=== PATIENT | male | born 1960 | race Caucasian/White ===

== ENCOUNTER → 2017-01-09 | Outpatient (CLI) | payer OTHER ==
[~2017-01-09] MED LIST: BENTYL 10MG10 MG/CAP PO; FLEXERIL 1010 MG/TAB PO; FLEXERIL10 MG PO; LORTAB 5/500 501 TAB PO; NAPROSYN500 MG PO; NEXIUM 40MG40 MG PO; NO HOME MEDICATIONS; NORCO 325 MG-51 TAB PO; NORCO 325 MG-7.1 TAB PO; PERCOCET 325 MG1 TA2 PO; PHENERGAN 25 TA25 MG PO; PREDNISONE20 MG PO; PRIL40 PO; TUMS500 MG PO; ULTRAM 50MG TAB50 MG PO; VENTOLIN0.09 MG IH
== END ==
LOC: COL.RAD 15:32
DX: M25.562 Pain in left knee (principal); M25.561 Pain in right knee

== ENCOUNTER → 2017-01-12 | Outpatient (CLI) | payer OTHER ==
[2017-01-12 16:17] LABS: HEMATOCRIT 42.4 % (42.0-52.0); HEMOGLOBIN 14.1 g/dl (13.5-18.0); MEAN CELL VOLUME 93 fl (80.0-100.0); MEAN CORPUSCULAR HEMOGLOBIN 31 pg (27.0-31.0); MEAN CORPUSCULAR HGB CONC 33 g/dl (33.0-37.0); MEAN PLATELET VOLUME 9.8 fl (7.4-10.4); PLATELET COUNT 193 K/mm3 (130-400); RED BLOOD COUNT 4.58 M/mm3 (4.20-5.60); REDCELL DISTRIBUTION WIDTH-CV 13.9 % (11.5-14.5); WHITE BLOOD COUNT 5.8 K/mm3 (4.8-10.8)
[2017-01-12 16:27] LABS: ADJUSTED CALCIUM 8.9 mg/dL (8.4-10.2); ALBUMIN 4.5 gm/dL (3.5-5.0); BILIRUBIN,TOTAL 0.9 mg/dL (0.0-1.0); CALCIUM 9.3 mg/dL (8.4-10.2); CREATININE, serum 0.96 mg/dL (0.66-1.25); POTASSIUM 3.8 mmol/L (3.4-5.0); TOTAL PROTEIN 8.5 gm/dL (6.4-8.2)
[2017-01-12 16:56] LABS: THYROID STIMULATING HORMONE 1.97 uIU/mL (0.465-4.680)
== END ==
LOC: COL.LAB 16:02
DX: K52.9 Noninfective gastroenteritis and colitis, unspecified (principal)
CPT/HCPCS: 87522

== ENCOUNTER → 2017-06-17 | Outpatient (CLI) | payer OTHER ==
[2017-06-17 12:18] LABS: COLLECTION METHOD CLEAN CATCH
[2017-06-17 12:22] LABS: HEMATOCRIT 46.1 % (42.0-52.0); HEMOGLOBIN 15.3 g/dl (13.5-18.0); MEAN CELL VOLUME 93 fl (80.0-100.0); MEAN CORPUSCULAR HEMOGLOBIN 31 pg (27.0-31.0); MEAN CORPUSCULAR HGB CONC 33 g/dl (33.0-37.0); MEAN PLATELET VOLUME 10.2 fl (7.4-10.4); PLATELET COUNT 187 K/mm3 (130-400); RED BLOOD COUNT 4.96 M/mm3 (4.20-5.60); REDCELL DISTRIBUTION WIDTH-CV 13.4 % (11.5-14.5)
[2017-06-17 12:27] LABS: MUCOUS Present /lpf; PH 6 (5-8); SQUAMOUS EPITHELIAL None Seen /hpf; URINE APPEARANCE Clear; URINE BACTERIA None Seen /hpf; URINE BILIRUBIN Negative (NEGATIVE); URINE BLOOD Negative (NEGATIVE); URINE COLOR Amber; URINE GLUCOSE Negative (NEGATIVE); URINE KETONE Trace (NEGATIVE); URINE LEUKOCYTE ESTERASE Negative (NEGATIVE); URINE NITRATE Negative (NEGATIVE); URINE PROTEIN(semi-quant) 2+ (NEGATIVE); URINE RBC 0-2 /hpf
[2017-06-17 12:30] LABS: ALBUMIN 4.7 gm/dL (3.5-5.0); BILIRUBIN,TOTAL 0.7 mg/dL (0.0-1.0); CALCIUM 9.5 mg/dL (8.4-10.2); CREATININE, serum 1.04 mg/dL (0.66-1.25); POTASSIUM 4.4 mmol/L (3.4-5.0); TOTAL PROTEIN 8.4 gm/dL (6.4-8.2)
== END ==
LOC: COL.LAB 11:52
DX: M51.36 Other intervertebral disc degeneration, lumbar region (principal); I10 Essential (primary) hypertension; R20.2 Paresthesia of skin; Z85.038 Personal history of other malignant neoplasm of large intestine

== ENCOUNTER → 2017-07-03 | Outpatient (CLI) | payer OTHER | LOC: COL.LAB 10:59 | DX: G62.9 Polyneuropathy, unspecified (principal) ==

== ENCOUNTER → 2017-07-25 | Outpatient (CLI) | payer SELFPAY ==
[2017-07-26 00:03] LABS: HEPATITIS B SURFACE ANTIGEN Negative (())
== END ==
LOC: COL.LAB 13:30
PROVIDERS: Internal Medicine Gastroenterology
DX: B18.2 Chronic viral hepatitis C (principal); J44.1 Chronic obstructive pulmonary disease with (acute) exacerbation; Z77.090 Contact with and (suspected) exposure to asbestos

== ENCOUNTER → 2017-07-25 | Outpatient (CLI) | payer SELFPAY | LOC: COL.RAD 13:34 | DX: J44.1 Chronic obstructive pulmonary disease with (acute) exacerbation (principal); Z77.090 Contact with and (suspected) exposure to asbestos ==

== ENCOUNTER → 2018-01-07 | Outpatient (CLI) | payer SELFPAY | LOC: COL.VAS 14:26 | DX: R22.42 Localized swelling, mass and lump, left lower limb (principal); M79.662 Pain in left lower leg ==

== ENCOUNTER → 2018-02-04 | Outpatient (CLI) | payer SELFPAY | LOC: COL.LAB 12:43 | DX: B18.2 Chronic viral hepatitis C (principal) ==

== ENCOUNTER → 2018-02-25 | Outpatient (CLI) | payer SELFPAY | LOC: COL.LAB 15:42 | DX: R00.0 Tachycardia, unspecified (principal) ==

== ENCOUNTER → 2018-04-01 | Outpatient (CLI) | payer SELFPAY ==
[2018-04-01 16:32] LABS: BASO % 0.6 % (0.0-2.0); EOS # 0.4 (0.0-0.7); GRAN # 2.1 (1.4-6.5); GRAN % 43.2 % (42.2-75.2); HEMOGLOBIN 13.3 g/dl (13.5-18.0); LYMPH % 40.4 % (20.0-51.0); MEAN CELL VOLUME 95 fl (80.0-100.0); MEAN CORPUSCULAR HEMOGLOBIN 31 pg (27.0-31.0); MEAN CORPUSCULAR HGB CONC 32 g/dl (33.0-37.0); MEAN PLATELET VOLUME 9.9 fl (7.4-10.4); MONO # 0.4 (0.1-0.6); MONO % 7.6 % (1.7-9.3); PLATELET COUNT 189 K/mm3 (130-400); RED BLOOD COUNT 4.31 M/mm3 (4.20-5.60); REDCELL DISTRIBUTION WIDTH-CV 13.2 % (11.5-14.5)
[2018-04-01 16:44] LABS: BILIRUBIN,TOTAL 0.4 mg/dL (0.0-1.0); TOTAL PROTEIN 7.2 gm/dL (6.4-8.2)
[2018-04-01 17:23] LABS: BILIRUBIN UNCONJUGATED 0.2 mg/dL (0.0-1.1); BILIRUBIN,DIRECT 0.2 mg/dL (0.0-0.4)
== END ==
LOC: COL.LAB 15:43
PROVIDERS: Internal Medicine Gastroenterology
DX: B18.2 Chronic viral hepatitis C (principal)

== ENCOUNTER → 2018-07-09 | Outpatient (CLI) | payer MEDICAID ==
[2018-07-10 02:38] LABS: HEPATITIS B SURFACE ANTIGEN Negative (Negative)
== END ==
LOC: COL.LAB 13:33
PROVIDERS: Internal Medicine Gastroenterology
DX: B18.2 Chronic viral hepatitis C (principal)

== ENCOUNTER → 2019-03-24 | Outpatient (RCR) | payer MEDICAID | END | disposition home or self-care (01) | LOC: WSC | DX: M54.5 Low back pain (principal) ==

== ENCOUNTER 2019-03-31 13:00 | Outpatient (RCR) | payer MEDICAID | END 2019-05-07 13:05 | disposition home or self-care (01) | LOC: WSC 13:00 | DX: Z01.89 Encounter for other specified special examinations (principal) ==

== ENCOUNTER → 2019-11-01 | Outpatient (CLI) | payer MEDICAID | LOC: COL.RAD 09:23 | DX: K43.2 Incisional hernia without obstruction or gangrene (principal); K76.0 Fatty (change of) liver, not elsewhere classified; K63.89 Other specified diseases of intestine; Z85.038 Personal history of other malignant neoplasm of large intestine; Z90.49 Acquired absence of other specified parts of digestive tract | CPT/HCPCS: Q9967 ==

== ENCOUNTER 2019-11-16 05:42 | Day surgery (SDC) | payer MEDICAID ==
[2019-11-16] VITALS (12 sets, daily range): BP systolic 109–145; BP diastolic 67–92; PULSE 79–103; TEMP 97.5–98.4
[~2019-11-16] VITALS: Ht 167.6 cm; Wt 101.1 kg
[2019-11-16] MEDS ORDERED: PRINIVIL10 MG PO (06:01)
[2019-11-16] MEDS ORDERED: COREG 25MG25 MG/TAB PO (06:02)
--- NOTE | 2019-11-16 06:30 | NUR ---
Kalli Shane CRNA was notified that the patient has not taken his Carvedilol or Lisinopril since Friday11/13/19. He verbalized understanding of the report given and has no further orders at this time. Will continue to monitor the patient.
--- NOTE | 2019-11-16 11:30 | NUR ---
Patient arrived to floor via bed. He drowsy and oreinted. Denies nausea. Stated he has pain to his lower abdomen when tries to move. Explained the diet orders. His dressing to abdomen midline is C/D/I. He has a friend at bedside. explained to her the visitor policy. Call light within reach. No other changes at this time. Bed alarm on.
--- NOTE | 2019-11-16 19:30 | NUR ---
Report received, assumed care for retail shift supervisor. Assessment complete. VS stable. Denies pain/nausea/shortness of breath. Dressing to midline abdomen-gauze/tape-CDI. +flatus. Voiding without difficulty. Tolerating PO. Plan of care discussed for this shift to include pain control/ambulation. Verbalizes understanding/denies questions/concerns. Call light in reach. Will monitor.
--- NOTE | 2019-11-16 21:11 | NUR ---
Called with c/o pain to abdomen-described as burn/throbbing-ratin gpain 6/10 on pain scale. Tramadol 100mg given per dr order. Will monitor.
--- NOTE | 2019-11-16 22:30 | NUR ---
Up to ambulate in hallway with stand by assist/gait belt. Ambulated approx 150 feet with intermittent stops. Tolerated well.
[2019-11-17 00:12] VITALS: BP 115/72; PULSE 70; TEMP 98.1
--- NOTE | 2019-11-17 03:38 | NUR ---
Rested well later this shift. Received PO pain meds x2 with good relief. Denied nausea/shortness of breath. VS remained stable. Did ambulate in hallway x1 without difficulty. IV INTd-tolerating PO. Call light in reach. Will monitor.
[2019-11-17 04:00] VITALS: BP 112/67; PULSE 65; TEMP 97.9
[2019-11-17 08:00] VITALS: BP 117/70; PULSE 74; TEMP 98
--- NOTE | 2019-11-17 09:51 | NUR ---
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 No needs right now.
--- NOTE | 2019-11-17 10:35 | NUR ---
FRANDY met with the patient to complete initial intake. The patient lives with [place] in [place] The patient denies DME use and is independent with ADLs. The patient's PCP is Dr. Hutchinson and patient receives medications from [facility] pharmacy with no difficulties. The patient does not have advanced directives in the EMR but was interested in a DPOA-HC form. Form provided. The patient has three adult children, Diana in [place] and Pati and Ayush in [place]. The patient has a sister Gudelia ([phone]). The patient is estranged from his daughter but says his son Ayush may come to live with him. He does have his phone number. The patient plans to return home at discharge. There are no additional needs at this time.
--- NOTE | 2019-11-17 11:30 | NUR ---
Patient has been doing well today. He has been walking around in the hallways. Denies pain and nausea. He is passing flatus. No bowel movement yet. Patient is hoping to discharge this afternoon. He is tolerating regular diet well. No other changes at this time. Call light within reach.
[2019-11-17 12:00] VITALS: BP 134/85; PULSE 80; TEMP 97.9
[2019-11-17] MEDS ORDERED: PERCOCET 325 MG1 TA2 PO (16:44)
[2019-11-17 17:02] VITALS: BP 115/68; PULSE 69; TEMP 97.4
--- NOTE | 2019-11-17 17:40 | NUR ---
Patient is discharging home. Discharge instructions discussed with patient. All belongings packed up and sent with patient. Explained he has script for percocet to get filled at the pharmacy. Copies of discharge instructions sent with patient. Explained when follow up appointment is. Patient is being walked out via wheel chair.
== END 2019-11-17 17:40 | disposition home or self-care (01) ==
LOC: SDCO 05:42 → SURG 11:25 → SDCO 11-17 17:40
DX: K43.2 Incisional hernia without obstruction or gangrene (principal); I10 Essential (primary) hypertension; B18.2 Chronic viral hepatitis C; Z85.038 Personal history of other malignant neoplasm of large intestine; Z11.59 Encounter for screening for other viral diseases
CPT/HCPCS: OP; A9284; C1781; J0690; J1100; J1170; J1885; J2405; J2704; J3010; J7120

== ENCOUNTER → 2021-12-07 | Outpatient (CLI) | payer MEDICAID ==
[~2021-12-07] MED LIST changes: +COREG 25MG25 MG/TAB PO; +PRINIVIL10 MG PO
== END ==
LOC: COL.RAD 13:30
DX: Z12.2 Encounter for screening for malignant neoplasm of respiratory organs (principal); J43.9 Emphysema, unspecified; I25.10 Atherosclerotic heart disease of native coronary artery without angina pectoris; F17.210 Nicotine dependence, cigarettes, uncomplicated